=== PATIENT | female | born 1980 | race Caucasian/White ===

== ENCOUNTER 2019-05-11 22:23 | Emergency (ER) | payer OTHER, MEDICAID ==
--- NOTE | 2019-05-11 23:12 | EDM.PDOC ---
ED HPI GENERAL MEDICAL PROBLEM - General Chief Complaint: Lower Extremity Injury/Pain Stated Complaint: HURT ANKLE Time Seen by Provider: 05/11/19 22:50 Source of Information: Reports: Patient History Limitations: Reports: No Limitations - History of Present Illness INITIAL COMMENTS - FREE TEXT/NARRATIVE: This patient was at home watching TV her right foot went to sleep. When she stood up the foot rolled under that is inverted (varus) and she felt a pop in the lateral side of the ankle. She noticed immediate swelling. She hasn't tried to bear weight on it since then. Happened about 2 hours ago. She is worried if it might be broken right ankle Pain Score (Numeric/FACES): 5 - Related Data Allergies Allergy/AdvReac Type Severity Reaction Status Date / Time amoxicillin Allergy Anaphylactic Verified 05/11/19 22:47 Shock Sulfa (Sulfonamide Allergy Hives Verified 05/11/19 22:47 Antibiotics) Home Meds: Home Meds Norgestimate-Ethinyl Estradiol [Ortho Tri-Cyclen 28 Tablet] 1 each PO DAILY [History] Propranolol [Inderal LA 24 Hr] 60 mg PO DAILY 05/11/19 [History] Past Medical History [employer] History: Reports: Fibroids, Musculoskeletal History: Reports: Fracture Neurological History: Reports: Migraines - Past Surgical History Female Surgical History: Reports: Section Social & Family History - Tobacco Use Smoking Status *Q: Never Smoker - Caffeine Use Caffeine Use: Reports: Coffee, Soda - Recreational Drug Use Recreational Drug Use: No Review of Systems - Review of Systems Review Of Systems: ROS reveals no pertinent complaints other than HPI. ED EXAM, GENERAL - Physical Exam Exam: See Below Exam Limited By: No Limitations General Appearance: Alert, No Apparent Distress Extremities: Other (There is minimal if any swelling of the right ankle. Definitely no ecchymosis. There is some very mild tenderness to the distal fibula but less so to the talofibular ligaments. She was able to bear weight and take a few steps with the assistance of her . Neurovascular tendon all intact.) Course - Vital Signs Last Recorded V/S: Last Vital Signs Temp 37.3 C 05/11/19 22:49 Pulse 94 05/11/19 22:49 Resp 19 05/11/19 22:49 BP 131/87 07/21/19 22:49 Pulse Ox 96 05/11/19 22:49 - Re-Assessments/Exams Free Text/Narrative Re-Assessment/Exam: 05/11/19 23:08 An Jeet wrap was applied and she was fitted with crutches Departure - Departure Time of Disposition: 23:09 Disposition: Home, Self-Care 01 Condition: Fair Clinical Impression: Right ankle sprain - Discharge Information Referrals: PCP,None [Primary Care Provider] - Additional Instructions: This appears to be a very mild ankle sprain or actually a strain, the difference being that a sprain actually involves tearing of the ligaments. Sprains generally cause swelling and bleeding in the ankle that results in bruising. You don't seem to have any of the bruising. Apply ice to the ankle and keep elevated as much as she can. Bear weight on it as much as tolerated. When you're not bearing weight then keep the ankle elevated. You may remove the Jeet wrap as needed. If it is just a strain it should get better over a period of a few days. If there is actual tearing of the ligaments that takes about 4 weeks to heal. Be sure to wear shoes that give substantial support to the feet and even something like hiking boots would be helpful. See your DrCathy if no better in a week.
== END 2019-05-11 23:19 | disposition home or self-care (01) ==
LOC: JP.ED 22:23
DX: S93.401A Sprain of unspecified ligament of right ankle, initial encounter (principal); Z88.2 Allergy status to sulfonamides; Z88.1 Allergy status to other antibiotic agents; Z79.899 Other long term (current) drug therapy; X50.1XXA Overexertion from prolonged static or awkward postures, initial encounter
CPT/HCPCS: 99283